=== PATIENT | male | born 1980 | race Caucasian/White ===

== ENCOUNTER 2019-07-13 13:58 | Emergency (ER) | payer SELFPAY ==
--- NOTE | 2019-07-13 14:11 | ER ---
Nurse's Notes [facility] Name: Antoni Graves Age: 39 yrs Sex: Male : 1980 Arrival Date: 07/13/2019 Time: 13:59 Bed Waiting Private MD: Diagnosis: Presentation: 07/13 14:09 Note Patient asked if there would be a wait, patient was notified that if triage aj1 assessment and vital signs looked good that there is currently a wait to get back to the back. Patient states that he is leaving. ED Course: 13:59 Patient arrived in ED. as Administered Medications: No medications were administered Outcome: 14:11 Eloped from waiting room. aj1 14:11 Patient left the ED. aj1 Signatures: Stacy Dow RN RN aj1 Lashonda Gilman as
== END 2019-07-13 14:11 | disposition left against medical advice (07) ==
LOC: ER 13:58
DX: Z53.21 Procedure and treatment not carried out due to patient leaving prior to being seen by health care provider (principal)

== ENCOUNTER 2023-11-24 22:17 | Emergency (ER) | payer BC, SELFPAY ==
--- OUTSIDE RECORDS SUMMARY | 2023-11-24 22:20 | XMS REPORT | Continuity of Care Document ---
Author Name Unknown Address [address] [id number] [facility] thconnect Address [address] [place] [address] Care Team Providers Care Nutritional Services Cook Name Role Phone Pcp, Patient Does Not Have A Primary Care Physic raissa Doctor Unassigned, [place] Attending Clinician U Joanne Miller Attending Clinician [phone] JOANNE RESTREPO Attending Clinician Unavailable SISSAVANNAH_Mathew Attending Clinician Unavailable JAYDEN Admitting Clinician Unavailable Payers Payer Name Policy Type Policy Number Effective Date Expirati on Date Source [place] [id number] 2019 00:00:00 Problems Condition Name Condition Details Condition Category Status Onset Date Resolution Date Last Treatment Date Treating Clinician Comments Source Hypertensi ve disorder Hypertensi ve Disorder Problem Active 11-19 00:00: 00 [facility] Allergies, Adverse Reactions, Alerts Allergy Name Allergy Type Status Severity Reaction(s) Onset Date Inactive Date Treating Clinician Comments Source TREE NUTS Food Active Med COUGH 2022-08 00:00: 00 [facility] Tree Nuts Propensi ty to adverse reaction s Active Cough 2022-08 00:00: 00 [facility] NO KNOWN ALLERGIE S Drug Class Active [facility] Social History Social Habit Start Date Stop Date Quantity Comments Source History of tobacco use Passive smoker [facility] Cigarettes smoked current (pack per day) - Reported 2023-06-18 00:00:00 2023-06-18 00:00:00 [facility] Tobacco use and exposure 2023-06-18 00:00:00 2023-06-18 00:00:00 Smokeless tobacco non-user [facility] History of Social function 2023-06-18 00:00:00 2023-06-18 00:00:00 [facility] Sex Ass[birth year] At 1980 00:00:00 1980 00:00:00 [facility] Smoking Status Start Date Stop Date Source Heavy Tobacco Smoker [facility] Smokes tobacco daily 2023-06-18 00:00:00 [facility] Medications Ordered Medication Name Filled Medication Name Start Date Stop Date Current Medication? Ordering Clinician Indication Dosage Frequency Signature (SIG) Comments Components Source allopurinoL 300 mg tablet 2022-08 15:43: 49 Yes 300mg Take 1 tablet by mouth as needed. [facility] meloxicam 15 mg tablet 2022-08 00:00: 00 07-19 05:59 :00 No [id number] 15mg Take 1 tablet by mouth in the morning for 30 days. [facility] lisinopriL 20 mg tablet 2022-08 0-31 00:00: 00 Yes 20mg Take 1 tablet by mouth in the morning. [facility] metoprolol succinate XL 100 mg 24 hr tablet 8 00:00: 00 Yes 100mg Take 1 tablet by mouth in the morning. [facility] bupropion HCl SR 150 mg tablet,12 hr sustained-r elease Take 1 tablet twice a day by oral route for 90 days. bupropion HCl SR 150 mg tablet,12 hr sustained-r elease Take 1 tablet twice a day by oral route for 90 days. No 1 BID bupropion HCl SR 150 mg tablet,12 hr sustained- release Take 1 tablet twice a day by oral route for 90 days. [facility] lisinopril 20 mg tablet Take 1 tablet every day by oral route for 90 days. lisinopril 20 mg tablet Take 1 tablet every day by oral route for 90 days. No 1 Q1D lisinopril 20 mg tablet Take 1 tablet every day by oral route for 90 days. [facility] metoprolol succinate ER 100 mg tablet,exte nded release 24 hr Take 1 tablet every day by oral route for 90 days. metoprolol succinate ER 100 mg tablet,exte nded release 24 hr Take 1 tablet every day by oral route for 90 days. No 1 Q1D metoprolol succinate ER 100 mg tablet,ext ended release 24 hr Take 1 tablet every day by oral route for 90 days. [facility] Vital Signs Vital Name Observation Time Observation Value Comments S donna Systolic blood pressure 2023-06-18 21:35:00 126 mm[Hg] [facility] Diastolic blood pressure 2023-06-18 21:35:00 90 mm[Hg] [facility] Heart rate 2023-06-18 21:35:00 89 /min [facility] Respiratory rate 2023-06-18 21:35:00 18 /min [facility] Body height 2023-06-18 21:35:00 180.3 cm [facility] Body weight 2023-06-18 21:35:00 114.306 kg [facility] BMI 2023-06-18 21:35:00 35.15 kg/m2 [facility] Oxygen saturation in Arterial blood by Pulse oximetry 2023-06-18 21:35:00 96 /min [facility] BP Diastolic 2022-11-19 00:00:00 96 mm[Hg] [facility] Height 2022-11-19 00:00:00 72 [in_i] [facility] BMI (Body Mass Index) 2022-11-19 00:00:00 35.1 kg/m2 [facility] BP Systolic 2022-11-19 00:00:00 134 mm[Hg] [facility] Body Weight 2022-11-19 00:00:00 4145.6 [oz_av] [facility] Procedures Procedure Date / Time Performed Performing Clinicia n Source OP CORRESPONDENCE 2023-07-14 06:01:00 Doctor Blanquita ssigned, [place] [facility] home sleep study 2022-11-19 00:00:00 [facility] Plan of Care Planned Activity Planned Date Details Comments Source Diagnostic Test Pending 2022-11-19 00:00:00 vitamin B12 + folate, serum or blood [code = vitamin B12 + folate, serum or blood] [facility] Diagnostic Test Pending 2022-11-19 00:00:00 lipid panel, blood [code = lipid panel, blood] [facility] Diagnostic Test Pending 2022-11-19 00:00:00 CMP, serum or plasma [code = CMP, serum or plasma] [facility] Diagnostic Test Pending 2022-11-19 00:00:00 CBC w/ auto diff [code = CBC w/ auto diff] [facility] Diagnostic Test Pending 2022-11-19 00:00:00 thiamine, QN, blood [code = thiamine, QN, blood] [facility] Diagnostic Test Pending 2022-11-19 00:00:00 uric acid, serum or plasma [code = uric acid, serum or plasma] [facility] Diagnostic Test Pending 2022-11-19 00:00:00 HbA1c (hemoglobin A1c), blood [code = HbA1c (hemoglobin A1c), blood] [facility] Encounters Start Date/Time End Date/Time Encounter Type Admission Type Attending Clinicians Care Facility Care Department Encounter ID Source 2023-07-14 00:00:00 2023-07-14 00:00:00 Orders Only Doctor Unassigned, [place] [facility] [id number] [facility] 2023-06-26 00:00:00 2023-06-26 00:00:00 Telephone Joanne Restrepo [facility] [id number] [facility] 2023-06-18 15:47:47 2023-06-18 23:59:00 Outpatient R JOANNE RESTREPO [facility] [id number] [facility] 2023-06-18 15:47:47 2023-06-18 23:59:00 Hospital Encounter Joanne Restrepo [facility] [id number] [facility] 2023-06-18 16:00:00 2023-06-18 16:08:26 [facility] [id number] [facility] 2023-02-07 00:00:00 2023-02-07 00:00:[address] [facility] [id number] [facility] 2023-01-03 00:00:00 2023-01-03 00:00:[address] [id number] 2022-12-01 00:00:00 2022-12-01 00:00:[address] [facility] 04[facility] 2022-11-19 00:00:00 2022-11-19 00:00:[id number] 2022-11-19 00:00:00 2022-11-19 00:00:00 Ethel Dow, MSN, ASSURANCE ANALYST, OIL WELL ENGINEER-C: [address], [address] [place] [address] , Ph. [facility], Ethel Dow, MSN, OIL WELL ENGINEER-C [id number] [facility] 2022-10-28 00:00:00 2022-10-28 00:00:[id number] 2022-10-24 00:00:00 2022-10-24 00:00:[address] [facility] [id number] [facility]
--- NOTE | 2023-11-24 23:56 | EDPHYS ---
Physician Documentation [facility] Name: Antoni Graves Age: 43 yrs Sex: Male : 1980 Arrival Date: 11/24/2023 Time: 22:17 Bed 16 Private MD: ED Physician Rigo Aguiar HPI: 11/23 22:28 This 43 yrs old Male presents to ER via Unassigned with complaints of Head sp4 Injury-Adult - passed out. 23:56 43-year-old male presents with acute posterior head injury after he passed out and fell sp4 after he became intoxicated. Patient reports multiple meal ingestion today. Patient states he fell but he cannot recall the fall. Patient has a moderate hematoma posterior scalp on arrival. . Historical: - Allergies: 11/24 00:19 No Known Allergies; tl4 - Home Meds: 00:19 None [Active]; tl4 - PMHx: 00:19 None; tl4 - PSHx: 00:19 None; tl4 - Immunization history:: Adult Immunizations unknown. - Infectious Disease History:: Denies. - Family history:: not pertinent. - Social history:: Smoking status: Patient denies any tobacco usage or history of. ROS: 11/23 23:56 Constitutional: Negative for fever, chills, and weight loss, sp4 All other systems are negative, Exam: 23:56 Constitutional: This is a well developed, well nourished patient who is awake, alert, sp4 and in no acute distress. Patient has moderately to heavily intoxicated Head/Face: Normocephalic, there is posterior scalp hematoma which is acute, without skin abrasion or laceration Eyes: Pupils equal round and reactive to light, extra-ocular motions intact. Lids and lashes normal. Conjunctiva and sclera are not injected. Cornea within normal limits. Periorbital areas with no swelling, redness, or edema. ENT: Nares patent. No nasal discharge, no septal abnormalities noted. Tympanic membranes are normal and external auditory canals are clear. Oropharynx with no redness, swelling, or masses, exudates, or evidence of obstruction, uvula midline. Mucous membranes moist. Neck: Trachea midline, no thyromegaly or masses palpated, and no cervical lymphadenopathy. Supple, full range of motion without nuchal rigidity, or vertebral point tenderness. Chest/axilla: Normal chest wall appearance and motion. Nontender with no deformity. No lesions are appreciated. Cardiovascular: Regular rate and rhythm with a normal S1 and S2. No gallops, murmurs, or rubs. Normal PMI, no JVD. No pulse deficits. Respiratory: Lungs have equal breath sounds bilaterally, clear to auscultation and percussion. No rales, rhonchi or wheezes noted. No increased work of breathing, no retractions or nasal flaring. Abdomen/GI: Soft, with normal bowel sounds. No distension or tympany. No guarding or rebound. No evidence of tenderness throughout. Back: No spinal tenderness. No costovertebral tenderness. Skin: Warm, dry with normal turgor. Normal color with no rashes, no lesions, and no evidence of cellulitis. MS/ Extremity: Pulses equal, no cyanosis. Neurovascular intact. Full, normal range of motion. Neuro: Awake and alert, GCS 15, oriented to person, place, time, and situation. Cranial nerves II-XII grossly intact. Motor strength 5/5 in all extremities. Sensory grossly intact. Psych: Awake, alert, with orientation to person, place exam is limited by mother of intoxication. Vital Signs: 22:45 BP 141 / 90; Pulse 99; Resp 20; Pulse Ox 99% on R/A; Pain 10/10; tl4 11/24 00:13 BP 133 / 88; Pulse 75; Resp 18; Temp 98.1; Pulse Ox 99% on R/A; Pain 8/10; tl4 11/23 22:45 Pain Scale: Adult tl4 11/24 00:13 Pain Scale: Adult tl4 Florence Coma Score: 11/23 22:45 Eye Response: spontaneous(4). Motor Response: obeys commands(6). Verbal Response: tl4 oriented(5). Total: 15. 23:56 Eye Response: spontaneous(4). Motor Response: obeys commands(6). Verbal Response: sp4 oriented(5). Total: 15. MDM: 22:24 Patient medically screened. sp4 23:53 ED course: EXAM: CT Head and Cervical Spine Without Intravenous Contrast CLINICAL sp4 HISTORY: The patient is 43 years old and is Male; head injury TECHNIQUE: Axial computed tomography images of the head/brain and cervical spine without intravenous contrast. Sagittal and coronal reformatted images were created and reviewed. This CT exam was performed using one or more of the following dose reduction techniques: automated exposure control, adjustment of the mA and/or kV according to patient size, and/or use of iterative reconstruction technique. COMPARISON: No relevant prior studies available. FINDINGS: Brain: Unremarkable. No hemorrhage. No significant white matter disease. No edema. Ventricles: Unremarkable. No ventriculomegaly. Skull: No acute fracture. Sinuses: Unremarkable as visualized. No acute sinusitis. Mastoid air cells: Unremarkable as visualized. No mastoid effusion. Vertebrae: Unremarkable. No acute fracture. Normal alignment. Discs/spinal canal/neural foramina: No acute findings. No spinal canal stenosis. Soft tissues: Left posterior scalp swelling. IMPRESSION: No acute intracranial abnormality. No acute findings in the cervical spine.. 23:56 Differential diagnosis: Contusion of Hematoma on Laceration of Intracranial bleed- sp4 Concussion cerebral contusion. Data reviewed: vital signs, nurses notes, old medical records, radiologic studies, CT scan. 11/23 22:26 Order name: CT Head C Spine sp4 Administered Medications: 11/24 00:11 Not Given (Patient Refused): [id number] mg PO once tl4 Disposition Summary: 11/24/23 23:55 Discharge Ordered Notes: Location: Home sp4 Problem: new sp4 Symptoms: have improved sp4 Condition: Stable sp4 Diagnosis - Unspecified injury of head, initial encounter sp4 - Acute Fall, posterior scalp hematoma sp4 Followup: sp4 - With: Private Physician - When: As needed - Reason: Recheck today's complaints Discharge Instructions: - Discharge Summary Sheet sp4 - Head Injury, Adult sp4 Forms: - Patient Portal Instructions sp4 Signatures: Dispatcher [employer] Rigo Aj MD MD sp4 LogdaAndrew cook RN RN tl4
[2023-11-25] MEDS ORDERED: IBUPROFEN 400 MG TAB ONE (00:03)
--- NOTE | 2023-11-25 00:21 | ER ---
Nurse's Notes [facility] Name: Antoni Graves Age: 43 yrs Sex: Male : 1980 Arrival Date: 11/24/2023 Time: 22:17 Bed 16 Private MD: Diagnosis: Unspecified injury of head, initial encounter;Acute Fall, posterior scalp hematoma Presentation: 11/23 22:45 Chief complaint: Patient states: Pt states he was coughing and passed out. Pt fell from tl4 a standing position and struck back of head on counter. Pt c/o head and back pain. Coronavirus screen: At this time, the client does not indicate any symptoms associated with coronavirus-19. Ebola Screen: No symptoms or risks identified at this time. Mechanism of Injury: resulted from a fall, from a standing position. Initial Sepsis Screen: Does the patient meet any 2 criteria? No. Patient's initial sepsis screen is negative. Does the patient have a suspected source of infection? No. Patient's initial sepsis screen is negative. Risk Assessment: Do you want to hurt yourself or someone else? Patient reports no desire to harm self or others. 22:45 Method Of Arrival: Wheelchair tl4 22:45 Acuity: REAGAN 4 tl4 11/24 00:19 Onset of symptoms was November 24, 2023. tl4 Triage Assessment: 00:20 Neuro: Reports headache. tl4 Historical: - Allergies: 00:19 No Known Allergies; tl4 - Home Meds: 00:19 None [Active]; tl4 - PMHx: 00:19 None; tl4 - PSHx: 00:19 None; tl4 - Immunization history:: Adult Immunizations unknown. - Infectious Disease History:: Denies. - Family history:: not pertinent. - Social history:: Smoking status: Patient denies any tobacco usage or history of. Screenin/15 22:48 [facility] ED Fall Risk Assessment (Adult) History of falling in the last 3 months, tl4 including since admission Yes- physiologic fall (2 pts) Confusion or Disorientation No (0 pts) Intoxicated or Sedated No (0 pts) Impaired Gait No (0 pts) Mobility Assist Device Used No (0 pt) Altered Elimination No (0 pt) Score/Fall Risk Level 0 - 2 = Low Risk Oriented to surroundings, Maintained a safe environment, Educated pt \T\ family on fall prevention, incl call for assistance when getting out of bed, Assessed \T\ reinforced patient's understanding of fall precautions, Hourly rounding (assess needs \T\ fall precautionary measures) done, Used ambulatory aids as needed (educated on \T\ assisted with), Used gait belt as appropriate. Abuse screen: Denies threats or abuse. Denies injuries from another. Nutritional screening: No deficits noted. Tuberculosis screening: No symptoms or risk factors identified. Assessment: 22:45 General: Appears uncomfortable, Behavior is cooperative. Pain: Complains of pain in tl4 back. Neuro: Level of Consciousness is awake, alert, obeys commands, Oriented to person, place, time, situation, Moves all extremities. Gait is steady, Speech is normal. Cardiovascular: Capillary refill < 3 seconds Patient's skin is warm and dry. Respiratory: Airway is patent Respiratory effort is even, unlabored, Respiratory pattern is regular, symmetrical, Breath sounds are clear bilaterally. GI: No signs and/or symptoms were reported involving the gastrointestinal system. : No signs and/or symptoms were reported regarding the genitourinary system. EENT: No signs and/or symptoms were reported regarding the EENT system. Derm: No signs and/or symptoms reported regarding the dermatologic system. Musculoskeletal: No signs and/or symptoms reported regarding the musculoskeletal system. Vital Signs: 22:45 BP 141 / 90; Pulse 99; Resp 20; Pulse Ox 99% on R/A; Pain 10/10; tl4 11/24 00:13 BP 133 / 88; Pulse 75; Resp 18; Temp 98.1; Pulse Ox 99% on R/A; Pain 8/10; tl4 11/23 22:45 Pain Scale: Adult tl4 11/24 00:13 Pain Scale: Adult tl4 Florence Coma Score: 11/23 22:45 Eye Response: spontaneous(4). Motor Response: obeys commands(6). Verbal Response: tl4 oriented(5). Total: 15. 23:56 Eye Response: spontaneous(4). Motor Response: obeys commands(6). Verbal Response: sp4 oriented(5). Total: 15. ED Course: 22:20 Patient arrived in ED. ra3 22:23 Beatrice Conway FNP-C [facility]. kb 22:23 Rigo Aguiar MD is Attending Physician. kb 22:54 Patient has correct armband on for positive identification. Placed in gown. Bed in low tl4 position. Call light in reach. Side rails up X2. Adult w/ patient. Provided Education on: ED process. Door closed. Noise minimized. Lights dimmed. Moved to private room. Warm blanket given. Pillow given. 23:06 CT Head C Spine In Process Unspecified. EDMS 11/24 00:16 No provider procedures requiring assistance completed. Patient did not have IV access tl4 during this emergency room visit. 00:19 Triage completed. tl4 00:20 Arm band placed on right wrist. tl4 Administered Medications: 00:11 Not Given (Patient Refused): [id number] mg PO once tl4 Medication: 00:14 VIS not applicable for this client. tl4 Outcome: 11/23 23:55 Discharge ordered by . sp4 11/24 00:16 Discharged to home via wheelchair, with family, tl4 Condition: stable Discharge instructions given to patient, family, Instructed on discharge instructions, follow up and referral plans. medication usage, Demonstrated understanding of instructions, follow-up care, medications, 00:20 Patient left the ED. tl4 Signatures: Dispatcher [employer] EDIL Beatrice Conway, PATIENT FINANCIAL SERVICES MANAGER-C PATIENT FINANCIAL SERVICES MANAGER-Ckb Rigo Aguiar MD MD sp4 Andrew Belle RN RN tl4 Kaleigh Mcneil ra3
[2023-11-25 08:30] VITALS: BP 133/88; TEMP 98.1; O2SAT 99
--- NOTE | 2023-11-26 23:47 | RAD REPORT ---
EXAM DESCRIPTION: CT Head and Cervical Spine Without Intravenous Contrast CLINICAL HISTORY: The patient is 43 years old and is Male; head injury TECHNIQUE: Axial computed tomography images of the head/brain and cervical spine without intravenous contrast. Sagittal and coronal reformatted images were created and reviewed. This CT exam was pe rformed using one or more of the following dose reduction techniques: automated exposure control, a djustment of the mA and/or kV according to patient size, and/or use of iterative reconstruction techn ique. COMPARISON: No relevant prior studies available. FINDINGS: Brain: Unremarkable. No hemorrhage. No significant white matter disease. No edema. Ventricles: Unremarkable. No ventriculomegaly. Skull: No acute fracture. Sinuses: Unremarkable as visualized. No acute sinusitis. Mastoid air cells: Unremarkable as visualized. No mastoid effusion. Vertebrae: Unremarkable. No acute fracture. Normal alignment. Discs/spinal canal/neural foramina: No acute findings. No spinal canal stenosis. Soft tissues: Left posterior scalp swelling. IMPRESSION: No acute intracranial abnormality. No acute findings in the cervical spine. Electronically signed by: Andre Yang MD 11/24/2023 11:45 PM CDT Due to temporary technical issues with the PACS/Fluency reporting system, reports are being signed by the in house radiologists without review as a courtesy to insure prompt reporting. The interpreting radiologist is fully responsible for the content of the report.
== END 2023-11-25 00:20 | disposition home or self-care (01) ==
LOC: ER 22:17
DX: S00.03XA Contusion of scalp, initial encounter (principal); W18.30XA Fall on same level, unspecified, initial encounter
CPT/HCPCS: 70450; 72125; 99282